=== PATIENT | male | born 1955 | race Caucasian/White ===

== ENCOUNTER 2024-12-28 09:32 | Outpatient (CLI) | payer MEDICARE, OTHER, SELFPAY | END 2024-12-28 09:33 | disposition home or self-care (01) | LOC: NFLDREF 12-31 01:36 | PROVIDERS: Visit Provider Physician Assistant | DX: N39.0 Urinary tract infection, site not specified (principal); B95.7 Other staphylococcus as the cause of diseases classified elsewhere | CPT/HCPCS: 87086; 87186 ==